=== PATIENT | male | born 1950 | race Caucasian/White ===

== ENCOUNTER 2020-03-04 17:09 | Day surgery (SDCO) | payer MEDICARE ==
[2020-03-04 18:18] LABS: BASOPHIL 0.3 % (0-2); EOSINOPHIL 2.9 % (0-7); HCT 38.2 % (42.0-52.0); HGB 13.3 g/dl (13.2-18.0); LYMPHOCYTE 7.7 % (15-48); MCH 34.4 pg (25.0-31.0); MCHC 34.8 g/dL (32.0-36.0); MCV 98.7 fL (78.0-100.0); MONOCYTE 5.8 % (0-12); NEUTROPHIL 82.9 % (41-80); NRBC 0; PLT 285 K/uL (150-400); RBC 3.87 M/uL (4.70-6.00); RDW 11.5 % (11.5-14.0); WBC 14.2 K/uL (4.0-10.5)
[2020-03-04 18:34] LABS: INR 1.07 (0.9-1.2); PROTHROMBIN TIME 13.2 SECONDS (11.4-13.6); PTT 34.6 SECONDS (22.2-34.7)
[2020-03-04 18:35] LABS: D-DIMER 0.5 ug/mLFEU (0.00-0.41)
[2020-03-04 18:45] LABS: PRO-BNP 108 pg/mL (<125)
[2020-03-04 18:53] LABS: ALBUMIN 3.2 g/dL (3.4-5.0); ALKALINE PHOSHATASE 100 U/L (46-116); ALT 57 U/L (16-63); AST 36 U/L (15-37); BILIRUBIN - TOTAL 0.4 mg/dL (0.2-1.0); BUN 12 mg/dL (7-18); BUN/CREAT RATIO (CALC) 16.7 RATIO; CHLORIDE 98 mmol/L (98-107); CO2 (BICARBONATE) 24 mmol/L (21-32); CREATININE 0.72 mg/dL (0.67-1.17); GLUCOSE 84 mg/dL (74-106); MAGNESIUM 1.8 mg/dL (1.8-2.4); POTASSIUM 4.6 mmol/L (3.5-5.1); TOTAL PROTEIN 6.2 g/dL (6.4-8.2)
[2020-03-04 18:54] LABS: C-REACTIVE PROTEIN < 0.20 mg/dL (<=0.90)
[2020-03-05] MEDS ORDERED: LIPITOR40 MG PO (00:36)
[2020-03-05] MEDS ORDERED: ADVIL200 M1 PO (00:36)
[2020-03-05] MEDS ORDERED: FLOMAX0.4 MG PO (00:36)
[2020-03-05] MEDS ORDERED: LISINOPRIL 10MG10 MG PO (00:37)
[2020-03-05] MEDS ORDERED: FLONASE ALLER15.8 ML (00:40)
[2020-03-05 06:58] LABS: BASOPHIL 0.6 % (0-2); EOSINOPHIL 10.1 % (0-7); HCT 39.6 % (42.0-52.0); HGB 13.6 g/dl (13.2-18.0); MCH 33.9 pg (25.0-31.0); MCHC 34.3 g/dL (32.0-36.0); MCV 98.8 fL (78.0-100.0); MONOCYTE 9.4 % (0-12); NEUTROPHIL 66.6 % (41-80); NRBC 0; PLT 261 K/uL (150-400); RBC 4.01 M/uL (4.70-6.00); RDW 11.4 % (11.5-14.0); WBC 9.1 K/uL (4.0-10.5)
[2020-03-05 07:31] LABS: ALBUMIN 2.9 g/dL (3.4-5.0); BILIRUBIN - TOTAL 0.5 mg/dL (0.2-1.0); BUN/CREAT RATIO (CALC) 15.1 RATIO; CREATININE 0.73 mg/dL (0.67-1.17); GLOBULIN (CALCULATION) 3.1 g/dL; POTASSIUM 4.4 mmol/L (3.5-5.1)
[2020-03-05 09:24] LABS: BILIRUBIN NEGATIVE (NEGATIVE); BLOOD NEGATIVE Ery/uL (NEGATIVE); CLARITY CLEAR (CLEAR); COLOR YELLOW (YELLOW); GLUCOSE (U) NORMAL (NORMAL); LEUKOCYTES NEGATIVE Leu/uL (NEGATIVE); NITRITE NEGATIVE (NEGATIVE); PROTEIN NEGATIVE (NEGATIVE); UROBILINOGEN 0.2 mg/dL (0.2-1.0); pH 5.5 (5.0-9.0)
[2020-03-05 09:32] LABS: BACTERIA TRACE; MUCOUS MODERATE; SQUAMOUS EPITHELIAL CELLS RARE
[2020-03-05] MEDS ORDERED: NORVASC2.5 MG PO (11:41)
[2020-03-05] MEDS ORDERED: NITROQUIK SL0.4 MG SL (12:03)
--- NOTE | 2020-03-06 17:20 | NUR ---
PT. D/C HOME WITH SPOUSE. ON 03/05/2020.
== END 2020-03-05 12:21 | disposition home or self-care (01) ==
LOC: FER 17:09 → FMS 23:04
PROVIDERS: Emergency Medicine; Nurse Practitioner; ADMIT Internal Medicine
DX: R07.89 Other chest pain (principal); J96.01 Acute respiratory failure with hypoxia; I25.10 Atherosclerotic heart disease of native coronary artery without angina pectoris; I25.2 Old myocardial infarction; I10 Essential (primary) hypertension; N40.0 Benign prostatic hyperplasia without lower urinary tract symptoms; E78.5 Hyperlipidemia, unspecified; F17.210 Nicotine dependence, cigarettes, uncomplicated; M54.2 Cervicalgia; D64.9 Anemia, unspecified; M54.9 Dorsalgia, unspecified; Z20.822 Contact with and (suspected) exposure to COVID-19; Z79.1 Long term (current) use of non-steroidal anti-inflammatories (NSAID); Z79.51 Long term (current) use of inhaled steroids; Z79.899 Other long term (current) drug therapy; Z80.0 Family history of malignant neoplasm of digestive organs; Z82.49 Family history of ischemic heart disease and other diseases of the circulatory system; Z95.5 Presence of coronary angioplasty implant and graft
CPT/HCPCS: 36415; 36600; 71045; 71275; 80053; 81001; 82803; 83735; 83880; 84145; 84484; 85025; 85379; 85610; 85730; 86140; 93005; 94762; G0378; Q9967; U0002